=== PATIENT | male | born 1945 | race Caucasian/White ===

== ENCOUNTER → 2019-01-24 | Outpatient (CLI) | payer MEDICARE ==
--- NOTE | 2019-01-24 11:35 | CT ---
EXAMINATION TYPE: CT brain wo/w con DATE OF EXAM: 01/24/2019 COMPARISON: None. HISTORY: Degenerative disease of nervous system, memory loss CT DLP: 2083 mGycm Automated exposure control for dose reduction was used. CONTRAST: CT scan of the head is performed without and with IV Contrast, patient injected with 80 mL of Isovue 300. FINDINGS: Noncontrast images show no acute intracranial hemorrhage or midline shift. There is mild to moderate ventricular and sulcal prominence. There is low attenuation in the deep and periventricular white ma tter most prominent over the bilateral superior parietal regions axilla measures 31 for reference. Po stcontrast images show no suspicious enhancing mass. There is hypoplastic or occluded left vertebral artery with patent dominant right vertebral artery. The globes are intact and the visualized sinuses are clear. IMPRESSION: Dwjx-bw-vryxicen diffuse cerebral atrophy with [id number]-tu-[id number] nonspecific white matte r changes presumed on basis of product of chronic small vessel ischemic change in patient of this age . No suspicious enhancing masses or enhancement noted.
== END | disposition home or self-care (01) ==
LOC: RADCTMAIN 10:01
PROVIDERS: ATTEND Physician Assistant
DX: G31.9 Degenerative disease of nervous system, unspecified (principal); R90.89 Other abnormal findings on diagnostic imaging of central nervous system
CPT/HCPCS: 82565; 84520; 70470; 36415; Q9967

== ENCOUNTER → 2019-02-17 | Outpatient (CLI) | payer MEDICARE ==
--- NOTE | 2019-02-17 10:08 | ECHOF ---
Referral Reason:I25.9 Chronic ischemic heart disease, unspecified MEASUREMENTS -------- HEIGHT: 172.7 cm WEIGHT: 90.7 kg BP: 136/64 RVIDd: 2.8 cm (< 3.3) IVSd: 1.6 cm (0.6 - 1.1) LVIDd: 4.1 cm (3.9 - 5.3) LVPWd: 1.6 cm (0.6 - 1.1) IVSs: 2.2 cm LVIDs: 2.4 cm LVPWs: 1.7 cm LAESV Index (A-L): 20.12 ml/m Ao Diam: 3.4 cm (2.0 - 3.7) AV Cusp: 1.9 cm (1.5 - 2.6) LA Diam: 3.6 cm (2.7 - 3.8) MV EXCURSION: 16.312 mm (> 18.000) MV EF SLOPE: 75 mm/s (70 - 150) EPSS: 0.9 cm MV E Ambrosio: 0.47 m/s MV DecT: 285 ms MV A Ambrosio: 0.86 m/s MV E/A Ratio: 0.55 RAP: 5.00 mmHg RVSP: 35.21 mmHg FINDINGS -------- Sinus rhythm with extra systolic beats. This was a technically adequate study. The left ventricular size is normal. There is moderate concentric left ventricular hypertrophy. O verall left ventricular systolic function is normal with, an EF between 55 - 60 %. The diastolic fi lling pattern is normal for the age of the patient 9.50. The right ventricle is normal in size. Normal LA size by volume 22+/-6 ml/m2. The right atrial size is normal. Interatrial and interventricular septum intact. The aortic valve is trileaflet and appears structurally normal. There is mild aortic valve sclerosi s. There is no evidence of aortic regurgitation. There is no evidence of aortic stenosis. There is trace mitral regurgitation. Mild tricuspid regurgitation present. There is mild pulmonary hypertension. The right ventricular systolic pressure, as measured by Doppler, is 35.21mmHg. There is no pulmonic regurgitation present. 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 There is no pericardial effusion. CONCLUSIONS -------- 1. Sinus rhythm with extra systolic beats. 2. This was a technically adequate study. 3. The left ventricular size is normal. 4. There is moderate concentric left ventricular hypertrophy. 5. Overall left ventricular systolic function is normal with, an EF between 55 - 60 %. 6. The diastolic filling pattern is normal for the age of the patient 9.50 7. The right ventricle is normal in size. 8. Normal LA size by volume 22+/-6 ml/m2. 9. The right atrial size is normal. 10. Interatrial and interventricular septum intact. 11. The aortic valve is trileaflet and appears structurally normal. 12. There is mild aortic valve sclerosis. 13. There is no evidence of aortic regurgitation. 14. There is no evidence of aortic stenosis. 15. There is trace mitral regurgitation. 16. Mild tricuspid regurgitation present. 17. There is mild pulmonary hypertension. 18. The right ventricular systolic pressure, as measured by Doppler, is 35.21mmHg. 19. There is no pulmonic regurgitation present. 20. 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 21. There is no pericardial effusion. [employer] INSPECTOR: Yadira Long LUIS
== END | disposition home or self-care (01) ==
LOC: RADECHMAIN 08:17
PROVIDERS: ATTEND Family Medicine
DX: I35.8 Other nonrheumatic aortic valve disorders (principal); I07.1 Rheumatic tricuspid insufficiency; I27.20 Pulmonary hypertension, unspecified; I77.819 Aortic ectasia, unspecified site; I25.9 Chronic ischemic heart disease, unspecified
CPT/HCPCS: 93306

== ENCOUNTER → 2021-12-05 | Outpatient (CLI) | payer MEDICARE ==
[2021-12-05 21:04] LABS: T4, Free (Free Thyroxine) 0.94 ng/dL (0.800-1.800)
== END | disposition home or self-care (01) ==
LOC: LABWHC1 11:55
PROVIDERS: ATTEND Psychiatry & Neurology Neurology
DX: E53.9 Vitamin B deficiency, unspecified (principal)
CPT/HCPCS: 36415; 82306; 82607; 82746; 83036; 84207; 84439; 84443

== ENCOUNTER → 2021-12-23 | Outpatient (CLI) | payer MEDICARE ==
--- NOTE | 2021-12-23 09:42 | XR ---
Right hip HISTORY: Pre-MRI, pain 2 views of the right hip Patient shows osteoarthritic change. There is marginal spurring, remodeling of the femoral head with some concentric joint space loss. Alignment and bone mineralization are maintained. No fracture or di slocation. Probable atherosclerotic vascular calcifications are present. No radiopaque foreign body. IMPRESSION: Osteoarthritis
--- NOTE | 2021-12-24 04:06 | MR ---
EXAMINATION TYPE: MR cspine/tspine wo con DATE OF EXAM: 12/23/2021 COMPARISON: None HISTORY: Back, spine and right leg pain, right gait dysfunction, myelopathy Multiplanar multiecho imaging of the cervical and thoracic spine with no contrast. Cervical spine Cervical vertebra have normal alignment. Disc spaces are fairly normal for age. There is small floor layer tile ior disc herniations and disc bulging from C3 to C7. There is developmentally adequate spinal canal. No cervical spinal stenosis. Cervical spinal cord shows normal signal pattern. No edema. Brainstem ap pears intact. No compression fracture. No evidence of focal bone destruction. IMPRESSION: Multilevel cervical disc bulging and small herniation. No spinal stenosis. No evidence of focal cervi mckayla spinal cord abnormality. Thoracic spine. There is a slight thoracic dextroscoliosis. No thoracic compression fracture. No significant thoracic disc space narrowing. No thoracic spinal stenosis. At the T10 level there is a 6 mm rounded area of fluid signal within the lower thoracic spinal cord. There is slight expansion of the cord. This didn't appears to have some mixed signal and could be hem orrhagic component. At T11-12 there is left side enlargement of the neural foramen with fluid. There is similar right side enlargement of the neural foramen at T10-11. No thoracic paraspinal mass. No co mpression fracture. I see no focal bone destruction. IMPRESSION: There is a cystic-appearing lesion within the lower thoracic spinal cord predominantly on the posteri or and left side with some complex adjacent component that could be small areas of hemorrhage. This c ould be cystic tumor and contrast MR scan is recommended for further evaluation if clinically indicat ed. This does not have the appearance of a syrinx. There are lateral meningoceles as above at the T10-11 and T11-12 levels.
== END | disposition home or self-care (01) ==
LOC: RADMRIMAIN 07:59
PROVIDERS: ATTEND Psychiatry & Neurology Neurology
DX: Z01.818 Encounter for other preprocedural examination (principal); M16.11 Unilateral primary osteoarthritis, right hip; M48.8X4 Other specified spondylopathies, thoracic region
CPT/HCPCS: 72141; 72146; 73502

== ENCOUNTER → 2022-01-27 | Outpatient (CLI) | payer MEDICARE ==
--- NOTE | 2022-01-27 13:41 | MR ---
MR thoracic spine with contrast HISTORY: Previous abnormal MRI Multiplanar multisequence postcontrast images obtained to the thoracic spine correlated to prior exam 12/23/2021 Spinal curvature is again noted. Thoracic cord signal is abnormal as described on previous exam, ther e is some mixed increased and intermediate signal on T1, predominantly increased signal on T2, no def inite enhancement following contrast administration, lesion appears well-circumscribed. The lesion ap pears expansile within the peripheral aspect of the cord. The lesion is at approximately the T10 leve l. Peripheral low signal on T2-weighted sequences could possibly represent some hemosiderin depositio n. Lesion measures approximately 1 cm in greatest transverse dimension by approximately 8 mm in AP di mension by approximately 12 mm in cephalad to caudal dimension. No significant spinal stenosis. No other significant interval change. IMPRESSION: Differential diagnostic considerations include spinal cavernoma, ependymoma not excluded
== END | disposition home or self-care (01) ==
LOC: RADMRIMAIN 08:23
PROVIDERS: ATTEND Psychiatry & Neurology Neurology
DX: R93.7 Abnormal findings on diagnostic imaging of other parts of musculoskeletal system (principal)
CPT/HCPCS: 72147; A9585

== ENCOUNTER → 2022-05-06 | Outpatient (CLI) | payer MEDICARE ==
--- NOTE | 2022-05-06 18:00 | MR ---
EXAMINATION TYPE: MR thoracic spine wo/w con DATE OF EXAM: 05/06/2022 COMPARISON: Prior MRI thoracic spine January 27 and December 23 2021. HISTORY: Mid back pain, benign neoplasm of spinal meninges TECHNIQUE: Multiplanar, multisequence imaging of thoracic spine is performed without and with IV cont rast. Patient injected with 10 cc gadolinium. FINDINGS: Persistent dextroconvex scoliosis centered mid thoracic spine on coronal images. Spinal co rd demonstrates round expansile mass at mid to inferior T10 level rim T1 and T2 hypointensity and linda tral 1 and T2 hyperintensity without definitive enhancement measuring approximately 8 mm in craniocau luis length. Some susceptibility artifact is felt present. Remainder of the thoracic spinal cord shows normal caliber and signal. Vertebral body heights and alignment are satisfactory. Disc space height s are maintained. No significant posterior disc herniations are seen. Review of the axial images redemonstrates no significant spinal canal stenosis or neural foraminal na rrowing at any thoracic level. Prominent neural foramina sheath incidentally redemonstrated at a few levels in the thoracic spinal cord. There is expansile lesion along the left posterior aspect with slight extension or bulging into the p osterior spinal canal axial image 2 series 801 correlating with postcontrast axial image 14. 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 No definitive enhancement. Not imaging characteristics of simple cystic lesion. Neoplasm is in differential. Vascular etiology not excluded. Correlation with C T with and without contrast should be considered.
== END | disposition home or self-care (01) ==
LOC: RADMRIMAIN 06:10
PROVIDERS: ATTEND Neurological Surgery
DX: D32.1 Benign neoplasm of spinal meninges (principal)
CPT/HCPCS: 72157; A9585